=== PATIENT | female | born 1965 | race Caucasian/White ===

== ENCOUNTER → 2016-10-21 | Outpatient (CLI) | payer OTHER, SELFPAY ==
--- NOTE | 2016-10-21 14:10 | MRI ---
EXAM DESCRIPTION: Cervical Spine CLINICAL HISTORY: 51 years, Female, CERVICALGIA, RADICULOPATHY left side neck pain. Left finger tingling COMPARISON: None. FINDINGS: Sagittal and axial sequences. Bone marrow and cord have normal signal characteristics. Straightening compatible muscular spasm. C2-3 unremarkable. At C3-4, focal central, slightly left, disc osteophyte about 2.5 mm flattens the thecal sac and almost completely effaces the subarachnoid space. At C4-5 smaller focal left-sided protrusion about 1.5 mm slightly flattens the thecal sac. C5-6, small central left-sided bulge slightly flattens the thecal sac. Small central and left-sided protruding disc osteophyte, about 1.5 mm, at C6-7. Disc osteophyte slightly flattens the thecal sac IMPRESSION: 1. Focal central left-sided protruding disc osteophyte at C3-4 with near complete flattening the subarachnoid space. No cord impingement seen 2. Smaller focal left-sided protrusion C4-5. Other mild disc changes in the lower cervical spine, as discussed Electronically signed by: Mir Russell MD 10/21/2016 2:09 PM CDT
== END | disposition home or self-care (01) ==
LOC: MRI 08:56
PROVIDERS: ATTEND Physician Assistant Medical
DX: M54.12 Radiculopathy, cervical region (principal); M54.2 Cervicalgia

== ENCOUNTER → 2018-01-19 | Outpatient (CLI) | payer OTHER | LOC: LAB.O 08:48 | PROVIDERS: ATTEND Internal Medicine Rheumatology | DX: R78.89 Finding of other specified substances, not normally found in blood (principal); M25.50 Pain in unspecified joint ==

== ENCOUNTER → 2018-05-25 | Outpatient (CLI) | payer OTHER ==
--- NOTE | 2018-05-25 13:40 | CT ---
EXAM DESCRIPTION: Chest w/o Contrast CLINICAL HISTORY: 53 years, Female, PRECORDIAL PAIN COMPARISON: Correlation is made with chest x-ray December 09, 2013 TECHNIQUE: Thin-section noncontrast axial CT images are obtained according to our protocol. Reconstructed MPR images are created and reviewed as well. FINDINGS: Lungs: No consolidating pulmonary infiltrate. Patchy atelectasis in the inferior lingula. Tiny right upper lobe nodule in the anterior segment measures 3 mm (image 27, series 2). Tiny subpleural nodule in the right middle lobe anteriorly measures 2 mm. Follow-up as per recommendations below. Tiny benign calcified granuloma in the left lower lobe is seen on the coronal images. No other pulmonary nodules. Mediastinum: Lymph nodes are normal in size. Normal vascular contours. Heart size is normal with no pericardial effusion. Chest wall/axilla: No mass or adenopathy. Breast tissue appears symmetrical. Patient has anterior chest pain. No sternal fracture or sternal destructive lesion. The anterior ribs appear intact. Lower neck/supraclavicular: No mass or adenopathy. Normal thyroid gland. Upper abdomen: Unremarkable upper abdominal viscera. Coronal and sagittal reformatted images confirm the findings. IMPRESSION: Small right upper lobe and right middle lobe nodules, 3 mm and 2 mm. Follow-up as per recommendations below. 2017 Fleischner Society Recommendations for Multiple Solid Lung Nodules Follow-Up base on size (average of long- and short-axis diameters). Use most suspicious nodule for followup. Nodule Size <6 mm Low-Risk Patient: No routine follow-up Nodule Size <6 mm High-Risk Patient: Optional CT at 12 months This exam was performed according to our departmental dose-optimization program, which includes automated exposure control, adjustment of the mA and/or kV according to patient size and/or use of iterative reconstruction technique. Total DLP equals 251.54 mGycm. Electronically signed by: Inder Bertrand MD 05/25/2018 1:39 PM STRIP [employer]ER
== END ==
LOC: CT 12:12
PROVIDERS: ATTEND Family Medicine
DX: I26.99 Other pulmonary embolism without acute cor pulmonale (principal); R07.2 Precordial pain

== ENCOUNTER 2019-04-23 02:02 | Emergency (ER) | payer OTHER ==
[2019-04-23] MEDS ORDERED: SODIUM CHLORIDE 0.9% 1000ML 1,000 ML ONE (02:17)
[2019-04-23] MEDS ORDERED: ONDANSETRON INJ 4 MG/2 ML VIAL ONE (02:17)
[2019-04-23] MEDS ORDERED: SODIUM CHLORIDE 0.9% 1000ML 1,000 ML IVS ONE ×2 (02:20→03:55)
[2019-04-23] MEDS ORDERED: ONDANSETRON INJ 4 MG/2 ML VIAL IV ONE (02:20)
[2019-04-23] MEDS ORDERED: PANTOPRAZOLE SODIUM IV 40 MG VIAL IV ONE (02:21)
--- NOTE | 2019-04-23 02:25 | ED.PDOC ---
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 She states that she and her attended [id number] and there was an oyster dip that she feels may have been tainted. She has not been able to talk to many other people that were at the constitution party since it so early in the morning. However she began having vomiting and diarrhea at approximately 2030 last night. She states that it is very watery stools without any blood present. She is not having fever or chills that she knows of. She does have some abdominal discomfort that is crampy in nature. She took some Dramamine without any relief. Patient denies any hematemesis as well. She states that she has some upper chest discomfort since having all of the vomiting. She denies any shortness of breath or palpitations. There is no radiation of the discomfort in her chest. She has no history of coronary disease. She is not treated for hypertension either. The patient is a nonsmoker. Review of Systems - Review of Systems Constitutional: States: malaise. Denies: chills, fever EENTM: States: no symptoms reported Respiratory: States: no symptoms reported Cardiology: States: chest pain. Denies: edema, palpitations, syncope Gastrointestinal/Abdominal: States: abdominal pain, diarrhea, nausea, vomiting Genitourinary: States: no symptoms reported Musculoskeletal: States: no symptoms reported Skin: States: no symptoms reported Neurological: States: no symptoms reported Endocrine: States: no symptoms reported Hematologic/Lymphatic: States: no symptoms reported Past Medical History (General) - Patient Medical History Hx Seizures: No Hx Stroke: No Hx Dementia: No Hx Asthma: No Hx of COPD: No Hx Cardiac Disorders: No Hx Congestive Heart Failure: No Hx Pacemaker: No Hx Hypertension: No Hx Thyroid Disease: Yes Hx Diabetes: No Hx Gastroesophageal Reflux: No Hx Renal Disease: No Hx Cancer: No Hx of HIV: No Hx Hepatitis C: No Hx MRSA: No Surgical History: no surgical history - Vaccination History Hx Tetanus, Diphtheria Vaccination: No Hx Influenza Vaccination: No Hx Pneumococcal Vaccination: No - Social History Hx Tobacco Use: No Hx Alcohol Use: Yes - occasional wine Hx Substance Use: No Hx Physical Abuse: No Hx Emotional Abuse: No - Female History Patient : No Family Medical History - Family History Mother Family History: Unknown Physical Exam - Physical Exam General Appearance: Alert, Obvious distress, Other - secondary to nausea Eyes, Ears, Nose, Throat Exam: PERRL/EOMI, normal ENT inspection, TMs normal, other - dry oropharynx Neck: non-tender, full range of motion, supple, normal inspection Respiratory: chest non-tender, lungs clear, normal breath sounds, no respiratory distress, no accessory muscle use Cardiovascular/Chest: normal peripheral pulses, no edema, no gallop, no JVD, no murmur, tachycardia Peripheral Pulses: No deficit Gastrointestinal/Abdominal: normal bowel sounds, soft, no organomegaly, no pulsatile mass, tenderness, other - no rebound or guarding, diffuse abdominal tenderness Rectal Exam: deferred Back Exam: normal inspection, no CVA tenderness, no vertebral tenderness Extremity: normal range of motion, non-tender, normal inspection, no pedal edema, no calf tenderness 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 Patient will be evaluated with serology as well as stool studies. We will go ahead and give supportive care at this time. We'll treat with antibiotics and PPIs. We'll give fluid resuscitation as well. 04/23/19 03:33 the patient is getting nauseated again. We will go ahead and order some promethazine. 04/23/19 03:55 the patient is now feeling more comfortable. We will go ahead and give her an additional liter of fluid. She's been unable to give us a urine. She has not been able to give us a stool sample either. Her last emesis was right when she arrived. Her vital signs have improved. Tachycardia resolved. Explained lab results to the patient. the patient seems to be experiencing a noninflammatory type of diarrhea illness. Supportive care to continue. Will not start antibiotics. 04/23/19 04:04 - Results/Orders Results/Orders: negative flu a and flu B Laboratory Tests 04/23/19 04/23/19 04/23/19 02:13 02:13 02:13 WBC 11.2 H RBC 4.94 Hgb 15.0 Hct 44.6 MCV 90.4 MCH 30.4 MCHC 33.7 RDW 12.4 Plt Count 269 MPV 8.3 Absolute Neuts (auto) 10.40 H Absolute Lymphs (auto) 0.40 L Absolute Monos (auto) 0.30 Absolute Eos (auto) 0.10 Absolute Basos (auto) 0.00 Neutrophils % 92.5 H Lymphocytes % 3.5 L Monocytes % 3.1 Eosinophils % 0.6 L Basophils % 0.3 Sodium 139 Potassium 3.8 Chloride 100 L Carbon Dioxide 27 Anion Gap 15.8 BUN 19 H Creatinine 0.70 BUN/Creatinine Ratio 27.1 H Random Glucose 177 H Serum Osmolality 284.2 Lactic Acid Calcium 10.7 H Total Bilirubin 1.0 AST 27 ALT 32 Alkaline Phosphatase 68 Troponin I < 0.02 Serum Total Protein 8.9 H Albumin 5.3 Globulin 3.6 H Albumin/Globulin Ratio 1.5 04/23/19 02:18 WBC RBC Hgb Hct MCV MCH MCHC RDW Plt Count MPV Absolute Neuts (auto) Absolute Lymphs (auto) Absolute Monos (auto) Absolute Eos (auto) Absolute Basos (auto) Neutrophils % Lymphocytes % Monocytes % Eosinophils % Basophils % Sodium Potassium Chloride Carbon Dioxide Anion Gap BUN Creatinine BUN/Creatinine Ratio Random Glucose Serum Osmolality Lactic Acid 1.5 Calcium Total Bilirubin AST ALT Alkaline Phosphatase Troponin I Serum Total Protein Albumin Globulin Albumin/Globulin Ratio - EKG/XRAY/CT EKG: Sinus, no ST T wave changes Comments: rate of 84, normal axis, no ischemic changes, prolonged QT at 410 ms Departure - Departure Clinical Impression: Acute diarrhea, Dehydration Vomiting Qualifiers: Vomiting type: unspecified Vomiting Intractability: non-intractable Nausea presence: with nausea Qualified Code(s): R11.2 - Nausea with vomiting, unspecified Time of Disposition: 04:42 Disposition: Discharge to Home or Self Care Condition: Good Departure Forms: ED Discharge - Pt. Copy, Patient Portal Self Enrollment Instructions: Diarrhea in Adolescents and Adults Referrals: Alxe Stout MD [Family Provider] - 1-2 Weeks Prescriptions: Diphenoxylate/Atropine [Lomotil Tab] 2.5 mg PO Q6HR #10 tab Promethazine Tab [Phenergan Tablet] 25 mg PO .Q4H #10 tab Home Medications: Ambulatory Orders FLUoxetine HCL [Prozac] 10 mg PO DAILY 12/10/13 Diphenoxylate/Atropine [Lomotil Tab] 2.5 mg PO Q6HR #10 tab 04/23/19 Levothyroxine Sodium 04/23/19 Promethazine Tab [Phenergan Tablet] 25 mg PO .Q4H #10 tab 04/23/19 Simvastatin 04/23/19 Tramadol HCl 04/23/19 Additional Instructions: continue aggressive hydration. Take medications as prescribed. If any bloody diarrhea then reevaluation is necessary immediately. Follow up with PCP. Return to emergency Department if any signs of dehydration. Wash hands thoroughly and avoid excessive contact with other individuals.
[2019-04-23] MEDS ORDERED: PROMETHAZINE HCL INJ 12.5 MG in SODIUM CHLORIDE 0.9% 50ML 50 ML IVPB ONE (03:29)
[2019-04-23] MEDS ORDERED: PROMETHAZINE HCL INJ 25 MG/ML VIAL ONE (03:31)
[2019-04-23] MEDS ORDERED: SODIUM CHLORIDE 0.9% 50ML 50 ML ONE (03:31)
[2019-04-23] MEDS ORDERED: PROMETHAZINE TAB (ER DISP) 25 MG TAB PO ONE (04:55)
[2019-04-23 05:06] VITALS: BP 117/88; TEMP 99.1; O2SAT 97
== END 2019-04-23 05:05 | disposition home or self-care (01) ==
LOC: ER 02:02
DX: R11.2 Nausea with vomiting, unspecified (principal); R19.7 Diarrhea, unspecified; E86.0 Dehydration; I45.81 Long QT syndrome; E07.9 Disorder of thyroid, unspecified; Z79.899 Other long term (current) drug therapy
CPT/HCPCS: 36415; 80053; 83605; 84484; 85025; 87040; 87502; 93005; A4216; J2405; J2550; J7030; Q0169

== ENCOUNTER → 2020-05-30 | Outpatient (CLI) | payer BC | LOC: GMA MATASK 14:29 | PROVIDERS: ATTEND Family Medicine | DX: E03.9 Hypothyroidism, unspecified (principal) ==